=== PATIENT | male | born 1970 | race Caucasian/White ===

== ENCOUNTER 2018-12-04 07:38 | Emergency (ER) | payer SELFPAY ==
[~2018-12-04] VITALS: Ht 172.7 cm; Wt 103.3 kg
[~2018-12-04 07:38] MED LIST: AMOX1TAB10 PO; CEPH-443 PO; HYDR-4011 PO; IBUP-1561 PO; IBUP800T48 PO; MED4DP PO
[2018-12-04 07:43] VITALS: BP 129/91; PULSE 81; RESP 18; Ht 172.7 cm; Wt 103.3 kg
[2018-12-04] MEDS ORDERED: ONDANSETRON 4 MG INJ IV STA (08:20)
[2018-12-04] MEDS ORDERED: morphine 4 MG/ML VIAL IV STA (08:20)
[2018-12-04] MEDS ORDERED: DEXAMETHASONE 10 MG/ML 1 ML INJ IV ONE (08:30)
[2018-12-04] MEDS ORDERED: AMPICILLIN/SULB 3 GM/NS (PMX) 100 ML IVPB ONE (08:30)
--- NOTE | 2018-12-04 08:44 | ERD ---
ER Documentation Chief Complaint Chief Complaint left jaw painful & swollen x 1 day HPI This is a 48-year-old male with no past medical history that presents to the emergency department complaining of left-sided jaw swelling that began at 24 hours prior to arrival. The patient indicated that for the past week he has been having dental pain on the left lower molar. He has not yet seen a dentist. He donated plasma 24 hours ago and upon awakening he noticed that his left cheek and jaw was swollen around the tooth that was sore. He denies any fever shaking or chills. He states the pain is 10 out of 10 in intensity. He denies any difficulty in swallowing. He has not taken any antibiotics. He said no fevers or shaking or chills. He did not take any analgesic medication prior to arrival. ROS All systems reviewed and are negative except as per history of present illness. Medications Home Meds Active Scripts Amoxicillin/Potassium Clav (Amox-Clav 875-125 mg Tablet) 875-125 mg Tab, 1 TAB PO BID for 10 Days, #20 TAB Prov:KYLE ROCHA 09/15/17 Cephalexin* (Keflex*) 500 Mg Capsule, 500 MG PO QID for 10 Days, CAP Prov:MARCIAL ENGLISH. [employer] 10/18/14 Ibuprofen* (Motrin*) 400 Mg Tab, 400 MG PO Q6H PRN for PAIN AND OR ELEVATED TEMP, #30 Prov:MARCIAL ENGLISH. [employer] 10/18/14 Allergies Allergies: Coded Allergies: No Known Allergy (Unverified , 12/04/18) PMhx/Soc History of Surgery: Yes (knee surgery) Anesthesia Reaction: No Hx Neurological Disorder: No Hx Respiratory Disorders: No Hx Cardiac Disorders: No Hx Miscellaneous Medical Probl: Yes (hernia) Hx Alcohol Use: Yes (everyday) Hx Substance Use: Yes Hx Tobacco Use: Yes Smoking Status: Current every day smoker Physical Exam Vitals Vital Signs Date Temp Pulse Resp B/P (MAP) Pulse Ox O2 O2 Flow FiO2 Time Delivery Rate 12/04/18 99.1 81 18 129/91 98 07:43 (104) Physical Exam Constitutional:Well-developed. Well-nourished. HEENT:Normocephalic. Atraumatic.Pupils were equal round reactive to light. Moist mucous membranes.no trismus. Tenderness over the left lower molar with percuss ion tooth #18 and 19. No submandibular swelling. Swelling over the left cheek and mid mandibular region. Neck: No nuchal rigidity. No lymphadenopathy. No posterior cervical spine tenderness or step-offs. Respiratory: Not using accessory muscles of respiration.Lungs were clear to auscultation bilaterally. No rhonchi. No rales. No wheezing. No stridor. Cardiovascular: Regular rate regular rhythm.No murmurs. No rubs were appreciated.S1, S2 normal. Distal pulses are palpable 2+ bilaterally. Results 24 hrs Current Medications Medications Dose Sig/Sunny Start Time Status Last (Trade) Ordered Route PRN Stop Time Admin Dose Reason Admin Morphine 4 mg ONCE STAT 12/04/18 DC Sulfate IV 08:20 12/04/18 (morphine) 08:30 Ondansetron 4 mg ONCE STAT 12/04/18 DC HCl (Zofran IV 08:20 12/04/18 Inj) 08:30 10 mg ONCE ONCE 12/04/18 DC Dexamethasone IV 08:30 12/04/18 (Decadron) 08:31 Ampicillin 100 ml @ ONCE ONCE 12/04/18 Sodium/ 100 mls/hr IVPB 08:30 12/04/18 Sulbactam 09:29 Sodium Procedures/MDM This is a 48-year-old male that presented to the emergency department with a suspected dental abscess and overlying facial cellulitis. There is no evidence of River's angina. The patient however had IV access established by nursing staff and was given IV antibiotics after obtaining blood cultures. He was given intravenous morphine and Zofran for analgesic control. Antibiotic of choice was IV Unasyn. Patient had no severe electrolyte abnormalities. Airway was not compromised. Again there was no evidence of complication such as River angina. Patient will be discharged home with antibiotics. He was instructed to follow- up with a dentist for definitive treatment. the patient was discharged home in fair condition. They were instructed to return to the emergency department at any time if there was any worsening of their condition. The patient stated they would follow up with their PCP in the next 24-48 hours to initiate a suitable medication regimen under the care of their PCP as well as to allow their PCP to monitor any drug reactions. The patient was discharged home with prescriptions after they gave informed consent to the new medication. They were also fully informed by myself on the adverse effects and adverse drug interactions in order to provide adequate safeguards to prevent possible adverse reactions to medications. Departure Diagnosis: Primary Impression: Dental abscess Additional Impression: Facial cellulitis Condition: SAMEER Caban MD Dec 04, 2018 08:44
== END 2018-12-04 11:29 | disposition home or self-care (01) ==
LOC: FTE 07:38 → E/R 11:29
DX: K04.7 Periapical abscess without sinus (principal); F17.210 Nicotine dependence, cigarettes, uncomplicated; L03.211 Cellulitis of face
CPT/HCPCS: 80053; 85025; 85610; 85730; 96374; 96375; 99284; J0295; J1100; J2270; J2405